=== PATIENT | male | born 1950 | race Caucasian/White ===

== ENCOUNTER → 2017-12-21 | Day surgery (SDC) | payer OTHER ==
[~2017-12-21] VITALS: Ht 188 cm; Wt 104.3 kg
[~2017-12-21] MED LIST: ROXICODONE5 M1 PO
[2017-12-21 06:39] LABS: ABSOLUTE BASOPHIL COUNT 0 /CUMM (0.0-0.2); ABSOLUTE EOSINOPHIL COUNT 0.3 /CUMM (0.0-0.7); ABSOLUTE GRANULOCYTE CT 4.5 /CUMM (1.4-6.5); ABSOLUTE LYMPH COUNT 1.2 /CUMM (1.2-3.4); ABSOLUTE MONOCYTE COUNT 0.5 /CUMM (0.10-0.60); BASOPHIL % 0.3 % (0.0-2.0); EOSINOPHIL % 4.6 % (0-5); GRANULOCYTE % 68.7 % (42.2-75.2); MEAN CORPUSCULAR HGB CONC 32.9 G/DL (33.0-37.0); MEAN CORPUSCULAR VOLUME 90.9 FL (80.0-94.0); MEAN PLATELET VOLUME 7.1 FL (7.4-10.4); PLATELET COUNT 593 /CUMM (130-400); RBC DISTRIBUTION WIDTH 13.8 % (11.5-14.5); RED BLOOD CELL CT 4.63 /CUMM (4.70-6.10); WHITE BLOOD CELL COUNT 6.6 /CUMM (4.8-10.8)
--- NOTE | 2017-12-21 15:46 | Operative Report ---
Operative/Inv Procedure Report Surgery Date: 12/21/17 Name of Procedure: Robotic repair of recurrent right inguinal hernia with 3D max medium mesh and an open repair of incarcerated umbilical hernia Pre-Operative Diagnosis: Recurrent right inguinal hernia and incarcerated umbilical hernia Post-Operative Diagnosis: Same, indirect recurrence Estimated Blood Loss: none Surgeon/Pipe Insulator Helper: Felisha VALLE,Joao Gallo PA-C Anesthesia: general endotracheal tube IV Fluids: 1100 cc crystalloid Implants: 3D max medium right mesh Drains: None Specimens: None Complications: None Operative Indication: Excellent to PACU Joao is a 67-year-old gentleman who had a prior repair right inguinal hernia about 4 years ago in open fashion non-mesh and who presented with a inguinal bulge and discomfort consistent with a recurrence. He presents for robotic repair in concert with a repair of a small incarcerated umbilical hernia Operative/Procedure Note Note: Joao is taken to the operating room placed on the operating table in supine position. He had been marked in the preop holding area as the right groin being correct and shave there as well with a clipper. Following an awake timeout he underwent uneventful induction of general endotracheal anesthesia had his arms tucked by his side Venodyne boots in place and received Kefzol IV prior to skin incision. The abdomen was prepped otherwise widely with DuraPrep and draped in usual sterile fashion including Ioban. Local anesthetic was infiltrated in the supraumbilical area where a curvilinear incision was made and carried down to the subcutaneous tissue. Here we quickly identified the umbilical hernia which had preperitoneal fat protruding up through a thinned out umbilical stalk. It was dissected off the back of the umbilical dermis partially and from the surrounding subcutaneous tissue down to the apache fascia. The apache fascia was now incised to the level of the fascia allowing a thin peel of the attenuated fascia to be removed over the dome of the preperitoneal fat hernia contents. The hernia defect was small about a centimeter and so I extended in a cephalad direction for another centimeter and then delivered up the preperitoneal fat dissected through with the cautery until we identified the peritoneum and open this carefully with cautery to gain entry safely into the peritoneal cavity. A finger sweep revealed there were no adhesions. Stay sutures of 0 Vicryl had been placed on the fascia and these were used to secure a 12 mm Harding air seal port. Pneumoperitoneum was now achieved and an 8 mm 30 da Mark XI scope was inserted. One could see right away in the right groin there was an indirect recurrence. There was no contents of the hernia. Now 2 8 mm ports were placed under direct vision after infiltrating local anesthetic, the right-sided one being slightly cephalad to the umbilical line and the one on the left side just slightly below. The da Mark XI robot was now docked and targeted to the right groin. Fenestrated bipolar grasper was placed in 4 to while camera it was in the center of port 3 in the right arm and port for head of bipolar scissors. Arm 1 was stowed sterilely. Now a peritoneal flap was created 5 cm above the superior margin of the indirect defect. The flap was brought out laterally first and then medially across the epigastrics carefully and then across the median umbilical ligament. Working medially I created a plane and pocket down to the synthesis dividing some of the linea alba fibers to accommodate the ventral mesh placement and then worked laterally along the back of the ramus creating a plane. This patient had a very well-developed posterior fascia that went all the way to the ramus did not taper off at the arcuate line as usual. Required a cautery to divide through this plane to gain entry into the appropriate plane on the back of the ramus. There is no evidence of any direct hernia as this area was well dissected. The venous pulsation of the iliac vein could be well-seen. Now attention was turned toward the indirect defect. With progressive and gradual traction on the sac I was able to deliver the entire sac out of the internal ring identifying the dome of the sac and the cord adherent to it at this level and laterally this was all swept off without any injury to the cord using the cautery and scissors. Is no bleeding in the canal as the entire sac was freed. There was no anterior or lateral lipoma but there did appear to be a posterior lipoma to the cord structures. I was able to put some traction on this to see if it would be something requiring removal from the internal ring but it was very adherent to the cord and other retroperitoneal fat and with external compression by the PA at the patient bedside there was no fat protruding back through the internal ring. The final attachments medial to the internal ring were now taken down that there was an excellent edge or gutter for the mesh to reside in. A 3D max medium right mesh was selected and placed into the space. It sat nicely in the pocket overlapping the symphysis medially and the tail and the lateral space. Secured it medially to the back of the rectus with a 2-0 Tycron suture and did the same just lateral to the epigastric vessels. There was excellent hemostasis throughout and the mesh sat nicely as I pulled up the flap of peritoneum and close this with a running 20V lock absorbable suture. Pressure was lowered down to 10 mmHg to facilitate this closure. Now the robot was undocked and the port removed under direct vision. With side- port now removed and the released lately. I repaired the umbilical hernia with 2 [id number] sutures of 0 Maxon suture. Subcutaneous space was reapproximated with interrupted 3-0 Vicryl sutures followed by 4-0 Monocryl running subcuticular skin closures. Steri-Strips 4 x 4's and OpSite were placed. Joao tolerated the procedure well was taken to the recovery room in satisfactory condition extubated all sponge needle and instrument counts confirmed as correct times two completion of the case. There was no subcutaneous emphysema and a moderate pneumo scrotum which was decompressed with some manual pressure. Findings: Large indirect defect normal direct and femoral spaces. Discharge Disposition: PACU Additional Comments: None
== END ==
LOC: STS 01:59
PROVIDERS: Surgery
DX: K40.91 Unilateral inguinal hernia, without obstruction or gangrene, recurrent (principal); K42.0 Umbilical hernia with obstruction, without gangrene; I10 Essential (primary) hypertension; D47.3 Essential (hemorrhagic) thrombocythemia; Z87.891 Personal history of nicotine dependence
CPT/HCPCS: 49651; 49587; S2900; 36415; C1781; J0131; J0690; J2250; J3490